=== PATIENT | female | born 1990 | race Caucasian/White ===

== ENCOUNTER 2019-10-06 16:50 | Outpatient (CLI) | payer OTHER ==
--- NOTE | 2019-10-07 12:56 | Ultrasound Report ---
PROCEDURE: OB First Trimester INDICATIONS: SUPERVISION OF NORMAL OUTSIDE/PRIOR DATING DATA: Last menstrual period (LMP): 08/14/2019. LMP-based estimated date of delivery (GARRET): 05/20/2020. First dating scan (date and location): 10/06/2019. Estimated date of delivery (GARRET) from first dating scan: 05/20/2020. TECHNIQUE: Real-time scanning was performed of the fetus and maternal pelvic organs, with image documentation. COMPARISON: None. FINDINGS: Embryo: Single living intrauterine gestation with an estimated sonographic gestational age of approx imately 7 weeks and 2 days based off crown-rump length of 1.2 cm. heart rate measured approxima tely 135 bpm. No perigestational hemorrhage. Measurement variability in dating: +/- 4 weeks by LMP, +/- 7 days by mean sac diameter (use before 6 weeks gestation if crown-rump length not able to be measured), +/- 5 days by crown-rump length (6-12 weeks gestation). Maternal organs: Ovaries are unremarkable bilaterally. Maternal cervix appears long and closed. Velázquez ited images through the kidneys demonstrate no hydronephrosis. IMPRESSION: Single living intrauterine gestation with an estimated sonographic gestational age of approximately 7 weeks and 2 days. Recommend follow-up routine second trimester anatomic screening survey. Reviewed by: Vasile Olvera MD on 10/07/2019 12:55 PM PDT Approved by: Vasile Olvera MD on 10/07/2019 12:55 PM PDT Station ID: [id number]
== END 2019-10-06 16:51 | disposition home or self-care (01) ==
LOC: DI 16:50
PROVIDERS: ATTEND Midwife
DX: Z34.01 Encounter for supervision of normal first pregnancy, first trimester (principal)
CPT/HCPCS: 76801

== ENCOUNTER 2020-05-24 14:29 | Outpatient (CLI) | payer OTHER ==
--- NOTE | 2020-05-25 08:34 | Ultrasound Report ---
PROCEDURE: OB Biophysical Profile INDICATIONS: FULL TERM MELISSA, BIOPHYSICAL PROFILE OUTSIDE/PRIOR DATING DATA: Last menstrual period (LMP): 08/14/2019. LMP-based estimated date of delivery (GARRET): 05/20/2020. First dating scan (date and location): 10/06/2019. Estimated date of delivery (GARRET) from first dating scan: 05/20/2020. TECHNIQUE: Real-time scanning was performed of the fetus, with image documentation and biometric luiza surements. Biophysical profile was also obtained. Endovaginal scanning: Not performed COMPARISON: OB ultrasound, 10/06/2019, 12/26/2019 and 03/12/2020. FINDINGS: General: A single living intrauterine gestation is present. Presentation: Cephalic Placenta: Placental position is right frontal, without previa. Prominent placental lakes. Amniotic fluid index: 10.3 cm, 29.4% for gestational age. Largest pocket 5 cm. heart rate: 137 beats per minute. Maternal cervical canal: Not visualized. biometrics: Performed on this exam. Estimated gestational age from initial scan: 40 weeks 4 days. Measurement variability in biometric dating: +/- 10 days from 12-20 weeks gestation, +/- 2 weeks from 20-30 weeks gestation, +/- 3 weeks at 30 weeks gestation or later. Biophysical profile: Tone: 2 points. Movement: 2 points. Respiration: 2 points. Largest pocket of fluid: 2 points. Umbilical artery Doppler: S/D ratio 2.05-2.39. Maternal ovaries are normal. Trace renal pelviectasis of the maternal left kidney. IMPRESSION: 1. A single living IUP redemonstrated. The estimated gestational age 40 weeks 4 days based on initial ultrasound. 2. Fetus in cephalic presentation. 3. Normal biophysical profile (8 out 8). Reviewed by: Corina Camarillo MD on 05/25/2020 8:33 AM PST Approved by: Corina Camarillo MD on 05/25/2020 8:33 AM PST Station ID: [id number]
== END 2020-05-24 14:30 | disposition home or self-care (01) ==
LOC: DI 14:29
PROVIDERS: ATTEND Midwife
DX: O36.8330 Maternal care for abnormalities of the fetal heart rate or rhythm, third trimester, not applicable or unspecified (principal); Z3A.40 40 weeks gestation of pregnancy

== ENCOUNTER 2020-05-25 15:04 | Outpatient (CLI) | payer OTHER | END 2020-05-25 15:05 | disposition short-term general hospital (02) | LOC: EMS 15:04 | DX: O73.1 Retained portions of placenta and membranes, without hemorrhage (principal); Z37.0 Single live birth; Z3A.40 40 weeks gestation of pregnancy | CPT/HCPCS: A0425; A0429 ==

== ENCOUNTER 2020-10-27 13:01 | Outpatient (CLI) | payer OTHER | END 2020-10-27 13:02 | disposition home or self-care (01) | LOC: LAB 13:01 | PROVIDERS: ATTEND Midwife | DX: Z01.89 Encounter for other specified special examinations (principal) | CPT/HCPCS: 36415; 84702 ==

== ENCOUNTER 2021-06-02 12:36 | Outpatient (CLI) | payer OTHER ==
[2021-06-02 13:06] VITALS: BP 119/69
--- NOTE | 2021-06-06 06:45 | PROCEDURE REPORT ---
- HPI Diagnosis/Indication for NST: Previous demise Current EDU 07/01/21 Gestation 35 Weeks and 6 Days 4 Para 2 Vital Signs Temperature 98.4 F 06/02/21 13:06 Heart Rate 77 06/02/21 13:06 Respiratory Rate 20 06/02/21 13:06 Blood Pressure 119/69 06/02/21 13:06 O2 Saturation 100 06/02/21 13:06 Temperature 98.4 F 06/02/21 13:07 Heart Rate 77 06/02/21 13:06 Respiratory Rate 20 06/02/21 13:06 Blood Pressure 119/69 06/02/21 13:06 O2 Saturation 100 06/02/21 13:06 - NST Procedure NST Procedure Start Date 06/02/21 Start Time 13:03 Stop Time 13:23 Vibroacoustic Stimulation Used No Patient States Movement Yes EFM 155 mod cecilia 15x15 accels no decels TOCO: rare - Results and Plan Findings/Impression: Patient is a 30 yo at 35+6 wga with complicated by prior demise now with suspected macrosomia and nuchal cord here for NST Cat I tracing Cont with twice weekly NST per [facility] Anticipate primary on 06/24/21 DOS: 06/02/21 NST read 06/02/21
== END 2021-06-02 13:40 | disposition home or self-care (01) ==
LOC: WFO 12:36 → FBP 12:38 → WFO 13:40
PROVIDERS: ATTEND Obstetrics & Gynecology
DX: O09.293 Supervision of pregnancy with other poor reproductive or obstetric history, third trimester (principal); Z3A.35 35 weeks gestation of pregnancy
CPT/HCPCS: 59025; 99213

== ENCOUNTER 2021-06-19 13:06 | Outpatient (CLI) | payer OTHER ==
[2021-06-19 13:38] VITALS: BP 120/70
[2021-06-19] MEDS ORDERED: FERRIC GLUCONATE 125 MG in SODIUM CHLORIDE 0.9% 100ML 100 ML IV ONE (14:00)
--- NOTE | 2021-06-20 14:37 | PROVIDER PROGRESS NOTE ---
Subjective - Prog Note Date Prog Note Date: 06/19/21 - Subjective Subjective: Patient presented for scheduled IV iron infusion. heart tones were obtained in the 150s. Patient was not seen or examined by me. Objective - Vital Signs/Intake & Output Intake & Output: Intake & Output 06/17/21 06/18/21 06/19/21 06/20/21 22:59 22:59 23:59 23:59 Intake Total Balance
== END 2021-06-19 15:45 | disposition home or self-care (01) ==
LOC: WFO 13:06 → FBP 13:10 → WFO 15:45
PROVIDERS: ATTEND Obstetrics & Gynecology
DX: O99.013 Anemia complicating pregnancy, third trimester (principal)
CPT/HCPCS: 96365; J2916

== ENCOUNTER 2021-06-22 15:28 | Outpatient (CLI) | payer OTHER ==
[2021-06-22 20:36] LABS: BASOPHILS % (AUTO) 0.3 %; EOSINOPHILS # (AUTO) 0.1 10^3/uL (0.0-0.7); EOSINOPHILS % (AUTO) 1.2 %; HCT - HEMATOCRIT 33.7 % (37.0-47.0); LYMPHOCYTES # (AUTO) 2.6 10^3/uL (1.5-3.5); LYMPHOCYTES % (AUTO) 27.2 %; MEAN CORPUSCULAR HEMOGLOBIN 31.1 pg (27.0-31.0); MEAN CORPUSCULAR HGB CONC 32.6 g/dL (32.0-36.0); MEAN CORPUSCULAR VOLUME 95.2 fL (81.0-99.0); MEAN PLATELET VOLUME 10.1 fL (7.9-10.8); MONOCYTES # (AUTO) 0.7 10^3/uL (0.0-1.0); MONOCYTES % (AUTO) 7.8 %; NEUTROPHILS # (AUTO) 5.8 10^3/uL (1.5-6.6); NEUTROPHILS % (AUTO) 61.8 %; PLT - PLATELET COUNT 243 10^3/uL (130-450); RED BLOOD COUNT 3.54 10^6/uL (4.20-5.40); RED CELL DISTRIBUTION WIDTH 14.2 % (12.0-15.0); WHITE BLOOD COUNT 9.4 x10^3/uL (4.8-10.8)
== END 2021-06-22 15:29 | disposition home or self-care (01) ==
LOC: LAB.S 15:28
PROVIDERS: ATTEND Obstetrics & Gynecology
DX: Z01.812 Encounter for preprocedural laboratory examination (principal); O09.299 Supervision of pregnancy with other poor reproductive or obstetric history, unspecified trimester; O36.60X0 Maternal care for excessive fetal growth, unspecified trimester, not applicable or unspecified; O26.899 Other specified pregnancy related conditions, unspecified trimester
CPT/HCPCS: 36415; 85025; 86850; 86900; 86901

== ENCOUNTER 2021-06-24 05:25 | Inpatient (IN) | payer OTHER ==
--- NOTE | 2021-06-24 02:47 | HISTORY & PHYSICAL EXAMINATION ---
Admit History - Mother's Labs Mother's Blood Type: positive: A Mother's RH: positive: Positive - Other Maternal History Other Maternal History: Patient is a 30-year-old -0-1-1 at 39+0 weeks EGA here for primary c- section for suspected LGA/nuchal cord with short interpregnancy interval and recent prior NND. DATING: LMP 09/18/20 gives GARRET 06/25/21 US on 11/16/20 at 7w4d gives GARRET 07/01/21; definitive. Patient has been followed by Lisa Jhaveri LPN at [facility]. History is as follows: G1: 2007 TAB at 8 weeks G2: 2013 at 40+3 weeks EGA. Female named Elissa. Miki Christensen G3: 05/25/2020 , home delivery. Male infant named Иван. demise 2/2 HIE. BW 8#8oz G4: current. Suspected LGA and nuchal cord. Desires elective . has been otherwise uncomplicated. Co-managed with [facility] given hx of NND. Had been recommended to have in facility with ability to convert to rapid with cEFM. With new knowledge of suspected macrosomia and nuchal cord, prefers to undergo primary . Prior delivery had labor course of 18H, 4H post rupture, 2nd stage 4 hours. Had nuchal cord, large right occipital cephalohematoma, and Apgars of 0/2/2. Asystolic at . Initial gases at 2 hours of life pH 6.7, base excess -33. PNL: A Pos, HCT 36.5 in 1st trimester, RPR NR. HepBsAg NR, Rubella imm, HbA1c 4.6%, TSH 1.29, UA wnl, GCCT neg/neg Vit D 33 HCT 04/14/21 32.2, having difficulty with iron supplementation Underwent us with [facility] at 33+4 wga, US showed EFW 3082, >99%ilw with enlarged abdominal circumference with probable nuchal cord. -Recommended twice weekly NST, which had been completed with CHUCK Parra. PMH unremarkable PSH: tonsilectomy OBHX: as above. Denies STIs and specifically denies HSV Had abnormal pap in 2020 with NORY-[address] Mccollum. Unclear if completed LEEP Irreg menses. Seasonal allergies NKDA MEDS: PNV and intermittent iron Allergies: No Known Allergies Medications: * prenat.vits,denilson,cno-okvc-yjjji tablet (prenat.vits,denilson,wdh-swcz-uddwy) Take 1 tablet by mouth once a day iron 325 mg (65 mg iron) tablet (ferrous sulfate) Take 1 tablet by mouth once a day Problems: Preoperative examination (ICD-V72.84) (WEE94-D49.818) Nuchal cord (ICD-762.5) (QCF21-X32.5) macrosomia (ICD-766.0) (INR66-M00.0) Supervision of with other obstetric history, unspecified trimester (ICD-V23.49) (MWP70-I91.299) Family History Summary: Family History Reviewed: 06/02/2021 Family History of Breast Cancer for Mother - Entered On: 05/23/2021 Family History of Hypertension for Mother - Entered On: 05/23/2021 Family History of Hypertension for Father - Entered On: 05/23/2021 Family History of Diabetes for Paternal Grandfather - Entered On: 05/23/2021 Social History Summary: Lives in [place] with and daughter 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 E: 5 per week outside of D: none Vital Signs: Patient Profile: 30 Years Old Female Height: 68 inches Weight: 190 pounds BMI: 28.99 Temp: 97.6 degrees F temporal BP sittin / 66 Cuff size: regular Vitals Entered By: Angeles William Talent Acquisition Administrator (June 02, 2021 10:55 AM) Meds Reviewed: Done Allergies Reviewed: Done Past Medical History: Reviewed and updated today: None Past Surgical History: Reviewed history from 05/23/2021 and no changes required: Tonsillectomy Flowsheet View for Follow-up Visit Estimated weeks of gestation: 35 6/7 Weight: 190 Blood pressure: 120 / 66 Fundal height: 36 FHR: 136 Vaginal bleeding: no Vaginal discharge: no activity: yes Labor symptoms: no Next visit: 1 wk Comment: PLease see HPI PLans to see [facility] until Plan for CS on 06/24/21 based on suspected macrosomia and muchal cord, recent hx of NND 2/2 HIE ON [employer]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 Physical Constitutional: GEN: NAD HEAD: NCAT EYES: No scleral icterus or conjunctival injection CV: RRR RESP: CTAB, normal effort ABD: S&NT/ND PSYCH: appropriate affect NEURO: alert and oriented, normal gait and coordination EXT: WWP EFM pending upon patient presentation Impression & Recommendations: Problem # 1: Supervision of with other obstetric history, unspecified trimester (ICD-V23.49) (NKN33-E51.299) LMP: 09/18/2020 GARRET of 06/25/2021 by LMP US on 11/17/20 at 7.4 wks NOT c/w LMP dating Final GARRET of 07/01/2021 -Will plan for primary CS at 39 weeks, on 06/24/21 -Anemia- ordered iron infusion in preparation for CS A POSITIVE /Rubella: IMMUNE VZV : unknown Genetic testing: Not addressed FAS: WNL. Placenta anterior. MELISSA WNL. EFW 78%ile, 3VC. US at 33+4 gives EFW 99%ile, with AC > 99%ile and nuchal cord present Glucola: 69 Flu: DECLINED Covid vaccine : Pfizer 03/29/2020, 04/19/20 booster 02/22/21 TDAP: not addressed, no found in records GBS: WIll have collected with [facility] HSV: Denies Breast pump rx: Has one MOD: C/S (due to traumatic delivery). Consents obtained. Plan for CS in 06/24/21. IV iron ordered in advance. PP contraception: TBD PAP: Will have repeat pap in period. Had abnormal pap last year. Orders: PRE OP -[id number] (CPT-[id number]) Problem # 2: Preoperative examination (ICD-V72.84) (WTR55-V90.818) Orders: PRE OP -[id number] (CPT-79408) Reviewed risks/benefits/alternatives to Risks include, but are not limited to, bleeding, infection, damage to neatby tissue and organs. On average, EBL of up to 1 liter is considered within normal limits for CS. Risks of blood transfusion include infection Risk of HIV 1/2million nationwide Risk of Hepatitis 1/1 million Risks of transfusion reaction Infection risk moderate given clean/contaminated nature of procedure and IV antibiotics will be given. Damage to nearby tissue and organs including bladder, bowel, ureters, blood vessels, nerves, and fetus Damage may be noted intra-op and may be delayed until after the procedure is complete Reviewed management of complications and efforts to avoid such outcomes but reviewed that they may occur despite our best efforts Written informed consent obtained. Will proceed to OR on 06/24/21 Meds/Allgy - Allergies Allergies/Adverse Reactions: Allergies Allergy/AdvReac Type Severity Reaction Status Date / Time No Known Drug Allergies Allergy Verified 06/19/21 13:41
--- OUTSIDE RECORDS SUMMARY | 2021-06-24 05:30 | EXTERNAL MEDICAL SUMMARY RPT | Continuity of Care Document ---
:1990 Author Organization [facility] Address [address] [place] [address] Phone Care Team Providers Name Role Phone RN Unavailable Unavailable Yenifer Unavailable Unavailable Direct Unavailable Unavailable Allergies No information. Encounters No information. Medications No information. Problems date description facility 20210613 IRON INFUSION FERRIC GLUCONATE All 20210613 Anemia complicating , third tr imester All 20210613 Anemia complicating , childbirt h, or the puerperium, All antepartum condition or complication 20210613 Anemia in mother complicating , childbirth AND/OR All puerperium 20210602 Umbilical cord around neck All 20210602 Preoperative examination, unspecified All 20210602 with other poor obstetric his tory All 20210602 [place] affected by other compression o f umbilical cord All 20210602 High risk All 20210602 Exceptionally large baby All 20210602 Exceptionally large baby All 20210602 Supervision of with other poor reproductive or All obstetric history, unspecified trimester 20210602 Other compression of umbilical cord aff ecting fetus or All 20210602 Exceptionally large at All 20210602 Encounter for other preprocedural exami nation All 20210602 Special examination - general All 20210523 No current problems or disability - unk nown All Results test status date ordered by attending specimen mamadou e blood_glucose_1_hour_a unknown 20210412 unknown unknown unknown fter_50_gm_oral_glucose blood_glucose_1_hour_a unknown 20210412 unknown unknown unknown fter_50_gm_oral_glucose blood_glucose_1_hour_a unknown 20210412 unknown unknown unknown fter_50_gm_oral_glucose blood_glucose_1_hour_a unknown 20210412 unknown unknown unknown fter_50_gm_oral_glucose blood_glucose_1_hour_a unknown 20210412 unknown unknown unknown fter_50_gm_oral_glucose blood_glucose_1_hour_a unknown 20210412 unknown unknown unknown fter_50_gm_oral_glucose facility observation status value reference units lab abnor mal line range code notes All blood_glucose unknown 69 unknown mg/dL _1504 unknow n unknown _1_hour_after_ -0 50_gm_oral_glu cose All blood_glucose unknown 69 unknown mg/dL _1039 unknow n unknown _1_hour_after_ 50_gm_oral_glu cose All blood_glucose unknown 69 unknown mg/dL _1504 unknow n unknown _1_hour_after_ -0 50_gm_oral_glu cose All blood_glucose unknown 69 unknown mg/dL _1039 unknow n unknown _1_hour_after_ 50_gm_oral_glu cose All blood_glucose unknown 69 unknown mg/dL _1504 unknow n unknown _1_hour_after_ -0 50_gm_oral_glu cose All blood_glucose unknown 69 unknown mg/dL _1039 unknow n unknown _1_hour_after_ 50_gm_oral_glu cose Vital Signs date measurement value source 20210602 weight_standard 190 lb 20210602 weight_metric 86.18 kg 20210602 temperature_standard 97.6 F 20210602 temperature_metric 36.44 C 20210602 height_standard 68 in 20210602 height_metric 172.72 cm 20210602 BP_systolic 120 mm[Hg] 20210602 BP_diastolic 66 mm[Hg] 20210602 BMI 28.99 kg/m2 20210602 weight_standard 190 lb 20210602 weight_metric 86.18 kg 20210602 temperature_standard 97.6 F 20210602 temperature_metric 36.44 C 20210602 height_standard 68 in 20210602 height_metric 172.72 cm 20210602 BP_systolic 120 mm[Hg] 20210602 BP_diastolic 66 mm[Hg] 20210602 BMI 28.99 kg/m2 20210602 weight_standard 190 lb 20210602 weight_metric 86.18 kg 20210602 temperature_standard 97.6 F 20210602 temperature_metric 36.44 C 20210602 height_standard 68 in 20210602 height_metric 172.72 cm 20210602 BP_systolic 120 mm[Hg] 20210602 BP_diastolic 66 mm[Hg] 20210602 BMI 28.99 kg/m2
[2021-06-24] MEDS ORDERED: LACTATED RINGERS 1,000 ML IV SCH ×4 (07:00→12:00)
[2021-06-24] MEDS ORDERED: LIDOCAINE MPF 2%-EPI 1:200000 20 ML VIAL ONE (07:27)
[2021-06-24] MEDS ORDERED: BUPIVACAINE 0.5% PF 10 ML VIAL ONE (07:27)
[2021-06-24] MEDS ORDERED: fentaNYL 100 MCG/2 ML VIAL ONE (07:38)
[2021-06-24] MEDS ORDERED: ACETAMINOPHEN 500 MG TABLET PO ONE (08:00)
[2021-06-24] MEDS ORDERED: METOCLOPRAMIDE 10 MG/2 ML VIAL IVP PRN ×2 (08:01→11:07)
[2021-06-24] MEDS ORDERED: ePHEDrine 50 MG/ML VIAL IVP PRN ×2 (08:01→11:07)
[2021-06-24] MEDS ORDERED: MORPHINE 2 MG/ML CARPUJECT IVP PRN ×2 (08:01→11:07)
[2021-06-24] MEDS ORDERED: HYDROmorphone 0.5 MG/0.5 ML SYRINGE IVP PRN ×2 (08:01→11:07)
[2021-06-24] MEDS ORDERED: ATROPINE ABBOJECT 1 MG/10 ML SYRINGE IVP PRN ×2 (08:01→11:07)
[2021-06-24] MEDS ORDERED: ONDANSETRON 4 MG/2 ML VIAL IVP PRN ×2 (08:01→11:07)
[2021-06-24] MEDS ORDERED: fentaNYL 100 MCG/2 ML VIAL IVP PRN ×2 (08:01→11:07)
[2021-06-24] MEDS ORDERED: NALOXONE 0.4 MG/ML VIAL IVP PRN ×2 (08:01→11:07)
--- NOTE | 2021-06-24 08:01 | ANESTHESIA ---
Pre-Anesthesia VS, & Labs - Diagnosis Prgnancy - Procedure section Vital Signs: Temp Pulse Resp BP Pulse Ox 98.1 C H 72 20 113/62 06/24/21 06:02 06/24/21 06:02 06/24/21 06:02 06/24/21 06:02 Height: 5 ft 8 in Weight (kg): 86.183 kg Body Mass Index: 28.8 BMI Classification: Overweight - NPO >8 hours - Is Patient ?: Yes - Lab Results Lab results reviewed: Yes Home Medications and Allergies Active Medications Acetaminophen (Acetaminophen 500 Mg Tablet) 1,000 mg PO ONCE ONE Stop: 06/24/21 08:01 Last Admin: 06/24/21 07:54 Dose: 1,000 mg Lactated Ringer's (Lr) 1,000 mls @ 125 mls/hr IV .Q8H DONTA Last Admin: 06/24/21 07:54 Dose: 125 mls/hr Cefazolin Sodium 2 gm/ Sodium (Chloride) 50 mls @ 100 mls/hr IV ONCE DONTA Stop: 06/24/21 10:00 Allergies/Adverse Reactions: Allergies Allergy/AdvReac Type Severity Reaction Status Date / Time No Known Drug Allergies Allergy Verified 06/19/21 13:41 Anes History & Medical History - Anesthetic History Anesthesia Complications: reports: No previous complications Family history of Anesthesia Complications: Denies Family history of Malignant Hyperthermia: Denies - Medical History Cardiovascular: reports: None Pulmonary: reports: None Gastrointestinal: reports: None Urinary: reports: None Neuro: reports: None Musculoskeletal: reports: None Endocrine/Autoimmune: reports: None Blood Disorders: reports: None Skin: reports: None Smoking Status: Former smoker Psychosocial: reports: Anxiety Exam General: Alert, Oriented x3, Cooperative, No acute distress Dental: WNL Mouth Openin Fingerbreadth Neck Mobility: Normal Mallampati classification: II Plan Anesthesia Type: Spinal, Transverse Abdominis Plane (TAP) Block Regional Block: Per Surgeon's request for Post Op pain control Consent for Procedure(s) Verified and Reviewed: Yes Code Status: Attempt Resuscitation ASA classification: 2-Mild systemic disease Is this case an emergency?: No
[2021-06-24] MEDS ORDERED: DEXAMETHASONE 4 MG/ML VIAL ONE (09:37)
[2021-06-24] MEDS ORDERED: LACTATED RINGERS 1,000 ML IV ONE (10:40)
[2021-06-24] MEDS ORDERED: SODIUM CHLORIDE FLUSH 0.9% 10 ML SYRINGE IVP PRN (11:21)
[2021-06-24] MEDS ORDERED: OXYTOCIN/SODIUM CHLORIDE 500 ML IV PRN (11:21)
[2021-06-24] MEDS ORDERED: ONDANSETRON ODT 4 MG TABLET TL PRN (11:21)
--- NOTE | 2021-06-24 11:37 | ANESTHESIA POST OP EVALUATION ---
Anesthesia Post Eval - Post Anesthesia Eval Vitals: Last Vital Signs Temp 37.4 C 06/24/21 10:55 Pulse 78 06/24/21 11:22 Resp 20 06/24/21 11:22 BP 117/55 L 06/24/21 11:22 Pulse Ox 100 06/24/21 11:22 CV Function Including HR & BP: Stable Pain Control: Satisfactory Nausea & Vomiting: Negative Mental Status: Baseline Respiratory Status: Airway Patent Hydration Status: Satisfactory Anesthesia Complications: None
[2021-06-24] MEDS: oxyCODONE 5 MG TABLET PO PRN ×3 (12:21→20:13)
[2021-06-24] MEDS ORDERED: oxyCODONE 5 MG TABLET PO SCH (13:00)
[2021-06-24] MEDS: KETOROLAC 30 MG/ML VIAL IVP SCH ×2 (16:07→21:58)
[2021-06-24] MEDS: ACETAMINOPHEN 500 MG TABLET PO SCH (16:07)
[2021-06-24] MEDS ORDERED: SODIUM CHLORIDE FLUSH 0.9% 10 ML SYRINGE IVP SCH (17:00)
--- NOTE | 2021-06-24 19:29 | OPERATIVE REPORT ---
Operative Report - General Admit Date: 06/24/21 Procedure Date: 06/24/21 Planned Procedure: Primary low transverse Pre-Op Diagnosis: IUP at 39+0 wga, suspected LGA, prior NND, nuchal cord Procedure Performed: Primary low transverse Post Op Diagnosis: Same and delivery of term gestation - Procedure Note Primary Surgeon: Karla Alcantar MD Secondary Surgeon: Elvia Haynes CNM Anesthesia Provider: Roxy Valdes CRNA Anesthesia Technique: Spinal Pathology: Patient to take placenta home IV Fluids (mL): 1,400 Estimated Blood Loss (mL): 1,000 Urine Output (mL): 400 Indications: Patient is a 30-year-old -0-1-1 at 39+0 weeks EGA here for primary c- section for suspected LGA/nuchal cord with short interpregnancy interval and r ecent prior NND. DATING: LMP 09/18/20 gives GARRET 06/25/21 US on 11/16/20 at 7w4d gives GARRET 07/01/21; definitive. Patient has been followed by Lisa Jhaveri LPN at [facility]. History is as follows: G1: 2007 TAB at 8 weeks G2: 2013 at 40+3 weeks EGA. Female named Elissa. [facility] G3: 05/25/2020 , home delivery. Male named Иван. demise 2/2 HIE. BW 8#8oz G4: current. Suspected LGA and nuchal cord. Desires elective . has been otherwise uncomplicated. Co-managed with [facility] given hx of NND. Had been recommended to have in facility with ability to convert to rapid with cEFM. With new knowledge of suspected macrosomia and nuchal cord, prefers to undergo primary . Prior delivery had labor course of 18H, 4H post rupture, 2nd stage 4 hours. Had nuchal cord, large right occipital cephalohematoma, and Apgars of 0/2/2. Asystolic at . Initial gases at 2 hours of life pH 6.7, base excess -33. PNL: A Pos, HCT 36.5 in 1st trimester, RPR NR. HepBsAg NR, Rubella imm, HbA1c 4.6%, TSH 1.29, UA wnl, GCCT neg/neg Vit D 33 HCT 04/14/21 32.2, having difficulty with iron supplementation Underwent us with MFM at 33+4 wga, US showed EFW 3082, >99%ilw with enlarged abdominal circumference with probable nuchal cord. Recommended toundergo given prior NND. Findings: Female infant in vertex presentation. Apgars 8/8. BW pending. Normal uterus, fallopian tubes, ovaries. Complications: None - Other Other Information/Narrative: Risks benefits and alternatives of the procedure were discussed. Written informed consent was obtained. Patient was taken to the operating room where spinal anesthesia was placed and found to be adequate. She was prepped and draped in the usual sterile fashion in the dorsal supine position with a leftward tilt. Frank catheter was in place. SCDs were in place and activated. Cefazolin 2 g IV was given as a preoperative antibiotic. Preoperative timeout was performed. A Pfannenstiel incision was made in the skin with a scalpel and carried through the underlying layer of fascia in a combination of sharp and blunt dissection. The fascia was incised in the midline, and the incision was extended laterally with the Zavala scissors. The superior aspect of the fascial incision was grasped with the Kenneth clamps, elevated, and the underlying rectus muscles were dissected off bluntly and sharply using the Zavala scissors. Attention was then turned to the inferior aspect of the incision which in a similar fashion was grasped, tented up with Kenneth clamps, and the underlying rectus muscles dissected off bluntly and sharply using Zavala scissors. The rectus muscles were then in the midline. The peritoneum was identified, tented up, and entered bluntly. The peritoneal incision was extended superiorly and inferiorly with good visualization of the bladder. The bladder that blade was then inserted. A bladder flap was not created. The lower uterine segment of the uterus was identified, and incised in a transverse fashion with a scalpel. The uterus was entered bluntly. The uterine incision was extended in a craniocaudal fashion by manual stretch. The bladder blade was removed. The was delivered from from vertex position. Baby wa s wrapped in a warm sterile towel. Delayed cord clamping was performed. After cessation of pulsations, the cord was clamped x2 and cut. The was handed off to the waiting pediatricians. The placenta was removed with manual expression. The uterus was NOT exteriorized. It was cleared of all clots clots and debris via manual swipe using Ray-Jose Roberto x2. The uterine incision was then repaired in a running locked fashion using 0 Vicryl suture. The incision was reinforced with a running imbricating layer again using 0-Vicryl suture. Excellent hemostasis was obtained. The gutters were cleared of all clots and debris. The pelvis was irrigated with saline infused sloppy wet lap sponges. The uterine defect was well visualized in normal anatomic position it was noted again to be hemostatic. The peritoneum was then reapproximated with 2-0 Vicryl in a running fashion. The rectus muscles were then reapproximated using interrupted [id number]-cj-rwcer sutures using 2-0 Chromic. Good hemostasis was noted. The fascia was then closed using 0 Vicryl in a running fashion starting from the left lateral edge to the midline. A second suture was used to close the fascia in a running fashion starting from the right lateral edge and meeting in the midline, agian using 0-Vicryl. The subcutaneous tissue was then irrigated and closed using 2-0 chromic in a running subcutaneous suture. Skin was closed in a running subcuticular suture using 4-0 Monocryl. Steri-Strips were applied to reinforce the incsion and dressing was applied. Procedure was well-tolerated and without complication. Sponge lap and needle counts were correct x2. Patient was taken to recovery room in stable condition. LINWOOD Michelle CNM, assisted with retraction, delivery of the infant, and suturing.
[2021-06-24] MEDS: SIMETHICONE CHEW 80 MG TABLET PO PRN (20:13)
[2021-06-24] MEDS: DOCUSATE SODIUM 100 MG CAPSULE PO SCH (20:13)
[2021-06-25] MEDS: ACETAMINOPHEN 500 MG TABLET PO SCH ×2 (00:12→08:13)
[2021-06-25] MEDS: oxyCODONE 5 MG TABLET PO PRN ×7 (00:12→21:54)
[2021-06-25] MEDS: KETOROLAC 30 MG/ML VIAL IVP SCH (04:01)
[2021-06-25 07:14] LABS: BASOPHILS % (AUTO) 0.2 %; EOSINOPHILS # (AUTO) 0.1 10^3/uL (0.0-0.7); EOSINOPHILS % (AUTO) 0.6 %; HCT - HEMATOCRIT 27.8 % (37.0-47.0); HGB - HEMOGLOBIN 9.2 g/dL (12.0-16.0); LYMPHOCYTES # (AUTO) 3.4 10^3/uL (1.5-3.5); LYMPHOCYTES % (AUTO) 27.2 %; MEAN CORPUSCULAR HEMOGLOBIN 31.6 pg (27.0-31.0); MEAN CORPUSCULAR HGB CONC 33.1 g/dL (32.0-36.0); MEAN CORPUSCULAR VOLUME 95.5 fL (81.0-99.0); MEAN PLATELET VOLUME 10.1 fL (7.9-10.8); MONOCYTES # (AUTO) 1.3 10^3/uL (0.0-1.0); MONOCYTES % (AUTO) 10.3 %; NEUTROPHILS # (AUTO) 7.5 10^3/uL (1.5-6.6); NEUTROPHILS % (AUTO) 60.9 %; PLT - PLATELET COUNT 197 10^3/uL (130-450); RED BLOOD COUNT 2.91 10^6/uL (4.20-5.40); RED CELL DISTRIBUTION WIDTH 14.4 % (12.0-15.0); WHITE BLOOD COUNT 12.3 x10^3/uL (4.8-10.8)
[2021-06-25] MEDS: DOCUSATE SODIUM 100 MG CAPSULE PO SCH ×2 (08:13→21:52)
[2021-06-25] MEDS: SIMETHICONE CHEW 80 MG TABLET PO PRN ×2 (08:13→12:09)
[2021-06-25] MEDS: IBUPROFEN 600 MG TABLET PO SCH ×3 (10:12→21:52)
[2021-06-25] MEDS ORDERED: IBUPROFEN 600 MG TABLET PO SCH (12:00)
--- NOTE | 2021-06-25 16:09 | Discharge Plan ---
Discharge Plan Problem Reviewed?: Yes Disposition: Home, Self Care Condition: Good Prescriptions: Acetaminophen [Acetaminophen Extra Strength] 1,000 mg PO Q8H PRN #60 tablet PRN Reason: Pain Docusate Sodium 100Mg Capsule [Colace 100Mg Capsule] 100 - 200 mg PO BID PRN #60 cap PRN Reason: Constipation Ibuprofen [Motrin] 600 mg PO Q6H PRN #60 tab PRN Reason: Pain oxyCODONE [Roxicodone] 2.5 - 5 mg PO Q4H PRN #24 tablet PRN Reason: Severe Pain Diet: Regular Activity Restrictions: Additional Comments Additional Instructions or Follow Up instructions: PELVIC REST: Nothing in the vagina for 6 weeks: No intercourse, tampons, douching. You are at high risk of uterine infection during this time frame. WARNING SIGNS: Call for: -Fever greater than 100.5 -Pain that does not improve with pain medication -Heavy bleeding in which you are soaking a pad an hour for 2 hours in a row -Incision becomes hot, hard, red, starts to open, or leaks foul smelling fluid -Pain or swelling in one leg and not the other +/- shortness of breath or chest pain LIFTING: No lifting more than 10# for 4 weeks DRIVING: No driving while on narcotics BATHING/WOUND CARE: Ok to shower. Let water run over the incision. Do not soap, scrub, or apply lotion. Pat dry with a clean towel or taiwo a music department chair. The surgical stickers will start to peel off and you can remove them when they do. Otherwise, the provider will remove them at your one week follow-up appointment. OK to use an unscented sanitary napkin or clean washcloth to keep the incision dry if the belly folds over the incision. DISCHARGE MEDICATIONS: Ibuprofen 600 mg by mouth every 6 hours as needed for pain Acetaminophen 500-1000 mg by mouth every 8 hours as needed for pain Docusate 100-200 mg by mouth twice a day as needed for constipation Oxycodone 2.5-5 mg by mouth every 4 hours as needed for pain No Smoking: If you smoke, Please STOP! Call for help. Follow-up with: Hilda Alcantar MD [Provider Admit Priv/Credential] -
--- NOTE | 2021-06-25 16:11 | PROVIDER PROGRESS NOTE ---
Subjective - Prog Note Date Prog Note Date: 06/25/21 Prog Note Time: 16:09 - Subjective Subjective: Patient is POD#1 s/p LTCS Doing well. Patient is up and ambulating, tolerating po, and voiding. Pain is well managed with pain medications. BF going well. O: VS: 98.4 72 102/59 16 10 GEN: NAD HEENT: NCAT CV:RR RESP: Nl effort ABD: S&NT/ND Dressing: CDI EXT: WWP A/P: POD#1 s/p LTCS -Doing well -Progressing on goals to discharge -Plan to DC home tomorrow Objective - Vital Signs/Intake & Output Vital Signs: Vital Signs x48h Temp Pulse Resp BP Pulse Ox 06/25/21 08:13 98.4 F 72 16 102/59 L 100 Intake & Output: Intake & Output 06/22/21 06/23/21 06/24/21 06/25/21 23:59 23:59 23:59 23:59 Intake Total 3450 700 Output Total 1675 3600 Balance 1775 -2900 - Lab Results Fish Bones: 06/25/21 07:00 Other Labs: Lab Results x24hrs 06/25/21 Range/Units 07:00 WBC 12.3 H (4.8-10.8) x10^3/uL RBC 2.91 L (4.20-5.40) 10^6/uL Hgb 9.2 L (12.0-16.0) g/dL Hct 27.8 L (37.0-47.0) % MCV 95.5 (81.0-99.0) fL MCH 31.6 H (27.0-31.0) pg MCHC 33.1 (32.0-36.0) g/dL RDW 14.4 (12.0-15.0) % Plt Count 197 (130-450) 10^3/uL MPV 10.1 (7.9-10.8) fL Neut # (Auto) 7.5 H (1.5-6.6) 10^3/uL Lymph # (Auto) 3.4 (1.5-3.5) 10^3/uL Coles # (Auto) 1.3 H (0.0-1.0) 10^3/uL Eos # (Auto) 0.1 (0.0-0.7) 10^3/uL Baso # (Auto) 0.0 (0.0-0.1) 10^3/uL Absolute Nucleated RBC 0.00 x10^3/uL Nucleated RBC % 0.0 /100WBC
[2021-06-26] MEDS: ACETAMINOPHEN 500 MG TABLET PO SCH ×2 (03:39→12:26)
[2021-06-26] MEDS: IBUPROFEN 600 MG TABLET PO SCH ×2 (03:40→10:07)
[2021-06-26] MEDS: oxyCODONE 5 MG TABLET PO PRN ×3 (03:40→12:26)
[2021-06-26] MEDS: DOCUSATE SODIUM 100 MG CAPSULE PO SCH (08:42)
[2021-06-26 10:33] VITALS: BP 105/56
--- NOTE | 2021-06-26 10:59 | DISCHARGE SUMMARY ---
"Discharge Summary Admit Date: 06/24/21 Discharge Date: 06/26/21 Discharging Provider: Katharine Code Status: Attempt Resuscitation Condition at Discharge: Good Discharge Disposition: 01 Home, Self Care - DIAGNOSES Admission Diagnoses: IUP at 39 wga Hx of prior NND Suspected macrosomia Suspected nuchal cord Discharge Diagnoses with Status of Each Condition: Same and delivery of term, LGA (4198g) - HPI History of Present Illness: Patient is a 30-year-old -0-1-1 at 39+0 weeks EGA here for primary c- section for suspected LGA/nuchal cord with short interpregnancy interval and recent prior NND. DATING: LMP 09/18/20 gives GARRET 06/25/21 US on 11/16/20 at 7w4d gives GARRET 07/01/21; definitive. Patient has been followed by Lisa Jhaveri LPN at [facility]. History is as follows: G1: 2007 TAB at 8 weeks G2: 2013 at 40+3 weeks EGA. Female named Elissa. [facility] G3: 05/25/2020 , home delivery. Male infant named Иван. demise 05/11 HIE. BW 8#8oz G4: current. Suspected LGA and nuchal cord. Desires elective . has been otherwise uncomplicated. Co-managed with [facility] given hx of NND. Had been recommended to have in facility with ability to convert to rapid with cEFM. Underwent us with [facility] at 33+4 wga, US showed EFW 3082, >99%ilw with enlarged abdominal circumference with probable nuchal cord. With new knowledge of suspected macrosomia and nuchal cord, prefers to undergo primary . Prior delivery had labor course of 18H, 4H post rupture, 2nd stage 4 hours. Had nuchal cord, large right occipital cephalohematoma, and Apgars of 0/2/2. Asystolic at . Initial gases at 2 hours of life pH 6.7, base excess -33. PNL: A Pos, HCT 36.5 in 1st trimester, RPR NR. HepBsAg NR, Rubella imm, HbA1c 4.6%, TSH 1.29, UA wnl, GCCT neg/neg Vit D 33 HCT 04/14/21 32.2, having difficulty with iron supplementation - CONSULTS | PROCEDURES Consultations: None - HOSPITAL COURSE Hospital Course: Patient was admitted and underwent to aforementioned procedure. was uncomplicated and well tolerated. Delviered a viable female infant from vertex presentation with BW 4198g and Apgars 8/8. Post course was uncomplicated. Discharged to home on post-op day#2 with routine discharge instructions. Rh positive/Rub imm - ALLERGIES Allergies/Adverse Reactions: Allergies Allergy/AdvReac Type Severity Reaction Status Date / Time No Known Drug Allergies Allergy Verified 06/19/21 13:41 - MEDICATIONS Home Medications: Ambulatory Orders Medication Instructions Recorded Confirmed Acetaminophen [Acetaminophen Extra 1,000 mg PO Q8H PRN #60 tablet 06/25/21 Strength] Docusate Sodium 100Mg Capsule 100 - 200 mg PO BID PRN #60 cap 06/25/21 [Colace 100Mg Capsule] Ibuprofen [Motrin] 600 mg PO Q6H PRN #60 tab 06/25/21 oxyCODONE [Roxicodone] 2.5 - 5 mg PO Q4H PRN #24 tablet 06/25/21 - PHYSICAL EXAM AT DISCHARGE General Appearance: positive: No acute distress Respiratory: positive: No respiratory distress Cardiovascular: positive: Other (RR) Peripheral Pulses: positive: 2+ Abdomen: positive: Non-tender, Other (FF at umbi.. Dressing removed. Steris in place, CDI) Back: positive: Nml inspection Skin: positive: Color nml Extremities: positive: Non-tender Neurologic/Psychiatric: positive: Oriented x3 - LABS Result Diagrams: 06/25/21 07:00 - FOLLOW UP Follow Up: [address] Alcantar - TIME SPENT Time Spent in Discharge (Minutes): 30"
== END 2021-06-26 13:00 | disposition home or self-care (01) | DRG 788 ==
LOC: FBP 05:25
PROVIDERS: ADMIT Obstetrics & Gynecology; ATTEND Obstetrics & Gynecology
PROC: 10D00Z1 Extraction of Products of Conception, Low, Open Approach (ICD-10-PCS; principal; 2021-06-24 07:30)
DX: O36.63X0 Maternal care for excessive fetal growth, third trimester, not applicable or unspecified (principal); O69.81X0 Labor and delivery complicated by cord around neck, without compression, not applicable or unspecified; Z3A.39 39 weeks gestation of pregnancy; Z37.0 Single live birth; Z87.891 Personal history of nicotine dependence
CPT/HCPCS: 36415; 85025; A9270; J7040; J7120; 86850; 86900; 86901

== ENCOUNTER 2022-01-17 08:42 | Day surgery (SDC) | payer OTHER ==
--- NOTE | 2022-01-17 08:39 | HISTORY & PHYSICAL EXAMINATION ---
HPI - History Obtained From History obtained from: Patient - History of Present Illness HPI Comment/Other: HPI: Presents is a 29-year-old -0-2-2 presenting today for LEEP. 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 Initially presented for colposcopy, but had a previous colpsocopy in 2020 that showed NORY 2 with negative ECC. She wanted treatment, but then became . She declined additional colposcopy as she wanted to proceed with previously delayed surgery. She is doing well overall and denies bleeding, pain, or other symptoms, but is nervous. . All other symptoms reviewed and were negative except per HPI. PMH NORY 2 PSH Tonsillectomy C section-2021 Manual extraction of placenta SH Previous smoker, approximately 1 drink per day. No illicit drugs Family History Mother: Breast cancer, hypertension Father: Hypertension Paternal Grandfather Allergies No known drug allergies Medications vitamins Ferrous Sulfate Physical exam: General: Alert, oriented, no acute distress Head: Normal cephalic atraumatic Eyes: PERRLA, extraocular motions intact. Respiratory: Normal rate of respiration. No accessory muscle use, normal respiratory effort. Cardiovascular: Regular rate and rhythm Abdomen: Nontender, nondistended Extremities: Normal range of motion Neuro: Oriented x3. Normal movements Psych: Appropriate mood and affect. Normal judgment and insight Plan 31-year-old -0-2-2 with NORY-2 here for LEEP NORY-2 -Plan for LEEP and ECC -Discussed risk, benefits, alternatives of treatment. Major risk of bleeding, needing further procedures. Discussed that this can be done in the office and is relatively safe procedure, patient agrees and would like to proceed. 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
[2022-01-17 09:15] LABS: HCT - HEMATOCRIT 40.6 % (37.0-47.0); HGB - HEMOGLOBIN 13.6 g/dL (12.0-16.0); MEAN CORPUSCULAR HEMOGLOBIN 31.7 pg (27.0-31.0); MEAN CORPUSCULAR HGB CONC 33.5 g/dL (32.0-36.0); MEAN CORPUSCULAR VOLUME 94.6 fL (81.0-99.0); MEAN PLATELET VOLUME 9.1 fL (7.9-10.8); RED BLOOD COUNT 4.29 10^6/uL (4.20-5.40); RED CELL DISTRIBUTION WIDTH 13.1 % (12.0-15.0); WHITE BLOOD COUNT 5.1 x10^3/uL (4.8-10.8)
[2022-01-17 09:16] LABS: HCG UR QUAL NEGATIVE
[2022-01-17] MEDS ORDERED: LACTATED RINGERS 1,000 ML IV ONE ×2 (09:17→11:45)
[2022-01-17] MEDS ORDERED: MIDAZOLAM 2 MG/2 ML VIAL ONE (09:31)
[2022-01-17] MEDS ORDERED: fentaNYL 100 MCG/2 ML VIAL ONE (09:31)
[2022-01-17] MEDS ORDERED: PROPOFOL 200 MG/20 ML VIAL IVP ONE (09:31)
--- NOTE | 2022-01-17 10:09 | ANESTHESIA ---
Pre-Anesthesia VS, & Labs - Diagnosis NORY 2 - Procedure LEEP Vital Signs: Temp Pulse Resp BP Pulse Ox O2 Flow Rate 36.1 C L 71 16 110/67 100 0 01/17/22 09:01 01/17/22 09:01 01/17/22 09:01 01/17/22 09:01 01/17/22 09:01 01/17/22 09:01 Height: 5 ft 8 in Weight (kg): 77.9 kg Body Mass Index: 26.1 BMI Classification: Overweight - NPO >8 hours - Is Patient ?: No - Lab Results Current Lab Results: Laboratory Tests 01/17/22 09:07: WBC 5.1, RBC 4.29, Hgb 13.6, Hct 40.6, MCV 94.6, MCH 31.7 H, MCHC 33.5, RDW 13.1, Plt Count 259, MPV 9.1 Lab results reviewed: Yes Fish Bones: 01/17/22 09:07 Home Medications and Allergies Home Medications: Ambulatory Orders No Known Home Medications 11/23/21 No Known Home Medications 11/23/21 Allergies/Adverse Reactions: Allergies Allergy/AdvReac Type Severity Reaction Status Date / Time No Known Drug Allergies Allergy Verified 01/17/22 09:17 Anes History & Medical History - Anesthetic History Anesthesia Complications: reports: No previous complications - Medical History Cardiovascular: reports: None Pulmonary: reports: None Gastrointestinal: reports: None Urinary: reports: None Neuro: reports: None Musculoskeletal: reports: None Endocrine/Autoimmune: reports: None Blood Disorders: reports: None Skin: reports: Psoriasis Smoking Status: Former smoker (quit 10 years ago) Psychosocial: reports: No issues indicated History of Cancer?: No - Surgical History Eyes Ears Nose Throat (EENT): reports: Tonsil/Adenoidectomy Gynecologic: reports: section Exam General: Alert, Oriented x3, Cooperative, No acute distress Dental: WNL Mouth Openin Fingerbreadth Neck Mobility: Normal Mallampati classification: II Thyromental Distance: 4-6 cm Mental/Cognitive Status: Alert/Oriented X3, Normal for patient Plan Anesthesia Type: General, Total IV Consent for Procedure(s) Verified and Reviewed: Yes Code Status: Attempt Resuscitation ASA classification: 1-Healthy patient Is this case an emergency?: No
[2022-01-17] MEDS ORDERED: POTASSIUM IODIDE/IODINE 14 ML SOLUTION ONE (10:11)
[2022-01-17] MEDS ORDERED: LIDOCAINE MPF 2%-EPI 1:200000 20 ML VIAL ONE (10:23)
[2022-01-17] MEDS ORDERED: LIDOCAINE 1% 50 ML MDV ONE (10:25)
[2022-01-17] MEDS ORDERED: PROPOFOL 500 MG/50 ML 500 MG/50 ML VIAL ONE (10:57)
[2022-01-17] MEDS ORDERED: LIDOCAINE MPF 2%-EPI 1:200000 20 ML VIAL SUBQ ONE (11:10)
[2022-01-17] MEDS ORDERED: FERRIC SUBSULFATE 8 ML SOLUTION (FOR OR) TOP ONE (11:30)
[2022-01-17] MEDS ORDERED: KETOROLAC 30 MG/ML VIAL ONE (11:48)
[2022-01-17] MEDS ORDERED: ONDANSETRON 4 MG/2 ML VIAL ONE (11:48)
[2022-01-17] MEDS ORDERED: HYDROmorphone 0.5 MG/0.5 ML SYRINGE ONE (12:01)
--- NOTE | 2022-01-17 12:14 | OPERATIVE REPORT ---
Operative Report - General Procedure Date: 01/17/22 Planned Procedure: LEEP Pre-Op Diagnosis: NORY 2 Procedure Performed: LEEP Post Op Diagnosis: CIN2 - Procedure Note Primary Surgeon: Rodger Toribio MD Anesthesia Provider: Awais Meyers CRNA Anesthesia Technique: Moderate sedation Pathology: Anterior cervical biopsy Posterior cervical biopsy IV Fluids (mL): 800 Estimated Blood Loss (mL): 20 Complications: None - Other Other Information/Narrative: Patient was taken to the operating room and placed in the dorsolithotomy position. Moderate sedation was achieved without difficulty. Perineum was prepped and draped in the normal sterile fashion. A coated speculum was placed in the vagina with good cervix. A single-tooth napkin was then used to grasp anterior lip of the cervix. A cervical block was then performed using local anesthesia. Small evacuator was placed in the speculum and suction turned on. At that point the loop electrode was then used to excise the posterior cervix starting at 3:00 and moving clockwise. The segment came into pieces and was sent to pathology. Attention was then turned to the anterior lip of the cervix which was similarly removed in a smooth motion from 3:00 to 9:00 removing the anterior cervix and 1 segment. The letter switched for the ball electrode which was used to cauterize the bleeding areas. Monsel solution was applied to the cervix. Hemostasis was noted. All instruments removed from the vagina and patient was taken to the PACU in stable condition.
[2022-01-17 12:27] VITALS: BP 107/62
--- NOTE | 2022-01-17 19:30 | ANESTHESIA POST OP EVALUATION ---
Anesthesia Post Eval - Post Anesthesia Eval Vitals: Last Vital Signs Temp 36.0 C L 01/17/22 12:25 Pulse 54 L 01/17/22 12:25 Resp 14 01/17/22 12:25 BP 107/62 01/17/22 12:25 Pulse Ox 99 01/17/22 12:25 O2 Flow Rate 0 01/17/22 09:01 CV Function Including HR & BP: Stable Pain Control: Satisfactory Nausea & Vomiting: Negative Mental Status: Baseline Respiratory Status: Airway Patent Hydration Status: Satisfactory Anesthesia Complications: None
== END 2022-01-17 08:43 | disposition home or self-care (01) ==
LOC: SDS 08:42
PROVIDERS: ATTEND Obstetrics & Gynecology
PROC: 0UBC7ZX Excision of Cervix, Via Natural or Artificial Opening, Diagnostic (ICD-10-PCS; principal; 2022-01-17 09:45)
DX: N87.1 Moderate cervical dysplasia (principal); R87.810 Cervical high risk human papillomavirus (HPV) DNA test positive; Z87.891 Personal history of nicotine dependence
CPT/HCPCS: 36415; 57460; 81025; 85027; A9270; J1170; J7120

== ENCOUNTER 2022-08-10 09:55 | Outpatient (CLI) | payer OTHER ==
[2022-08-10 10:11] LABS: BASOPHILS % (AUTO) 0.5 %; EOSINOPHILS # (AUTO) 0.1 10^3/uL (0.0-0.7); EOSINOPHILS % (AUTO) 2.5 %; HCT - HEMATOCRIT 38.3 % (37.0-47.0); HGB - HEMOGLOBIN 12.6 g/dL (12.0-16.0); LYMPHOCYTES # (AUTO) 2.1 10^3/uL (1.5-3.5); LYMPHOCYTES % (AUTO) 38.1 %; MEAN CORPUSCULAR HEMOGLOBIN 31.4 pg (27.0-31.0); MEAN CORPUSCULAR HGB CONC 32.9 g/dL (32.0-36.0); MEAN CORPUSCULAR VOLUME 95.5 fL (81.0-99.0); MEAN PLATELET VOLUME 9.6 fL (7.9-10.8); MONOCYTES # (AUTO) 0.4 10^3/uL (0.0-1.0); MONOCYTES % (AUTO) 7.7 %; NEUTROPHILS # (AUTO) 2.8 10^3/uL (1.5-6.6); PLT - PLATELET COUNT 218 10^3/uL (130-450); RED BLOOD COUNT 4.01 10^6/uL (4.20-5.40); RED CELL DISTRIBUTION WIDTH 12.7 % (12.0-15.0); WHITE BLOOD COUNT 5.6 x10^3/uL (4.8-10.8)
[2022-08-10 10:25] LABS: ALBUMIN 4.4 g/dL (3.2-5.5); ALBUMIN/GLOBULIN RATIO 1.5 (1.0-2.2); BILIRUBIN,TOTAL 0.9 mg/dL (0.2-1.0); CALCIUM 8.8 mg/dL (8.5-10.3); CREATININE 0.7 mg/dL (0.4-1.0); POTASSIUM 4.1 mmol/L (3.5-5.0); TOTAL PROTEIN 7.3 g/dL (6.7-8.2)
[2022-08-10 10:42] LABS: THYROID STIMULATING HORMONE 1.7 uIU/mL (0.34-5.60)
[2022-08-11 19:07] LABS: THYROGLOBULIN ANTIBODY <1.0 IU/mL (0.0-0.9); THYROID PEROXIDASE (TPO) AB 18 IU/mL (0-34)
[2022-08-12 17:08] LABS: ANTINUCLEAR ANTIBODIES IFA Negative (.)
[2022-08-13 12:08] LABS: TRYPTASE 6.8 ug/L (2.2-13.2)
[2022-08-14 12:09] LABS: C1 ESTERASE INHIBITOR SERUM 27 mg/dL (21-39)
== END 2022-08-10 09:56 | disposition home or self-care (01) ==
LOC: LAB 09:55
PROVIDERS: ATTEND Obstetrics & Gynecology
DX: T78.3XXD Angioneurotic edema, subsequent encounter (principal); N91.1 Secondary amenorrhea
CPT/HCPCS: 36415; 80053; 83520; 84146; 84443; 85025; 86038; 86160; 86161; 86376; 86800

== ENCOUNTER 2023-02-20 08:00 | Outpatient (CLI) | payer OTHER | END 2023-02-20 23:59 | disposition home or self-care (01) | LOC: LAB.S 08:00 | PROVIDERS: ATTEND Nurse Practitioner | DX: J02.9 Acute pharyngitis, unspecified (principal) | CPT/HCPCS: 87070 ==

== ENCOUNTER 2023-06-20 19:04 | Emergency (ER) | payer OTHER ==
[2023-06-20 19:32] VITALS: BP 103/68
--- NOTE | 2023-06-20 19:35 | ED Physician Documentation ---
PD HPI LOWER EXT INJURY - Stated complaint Stated Complaint: FALL/BILAT LEG PX - Chief complaint Chief Complaint: Trauma Ext - History obtained from History obtained from: Patient - Additional information Additional information: Otherwise healthy 32-year-old woman with unknown tetanus status was carrying her baby down some stairs and had a trip and fall. She injured multiple areas including left elbow, left knee, left tib-fib, and right leg. The worst of it is the left anterior pringle. No head or neck injury. 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: section HEENT: Tonsil/Adenoidectomy - Present Medications Home Medications: Ambulatory Orders Medication Instructions Recorded Confirmed No Known Home Medications 11/23/21 06/20/23 - Allergies Allergies/Adverse Reactions: Allergies Allergy/AdvReac Type Severity Reaction Status Date / Time No Known Drug Allergies Allergy Verified 06/20/23 19:28 - Social History Does the pt smoke?: No Smoking Status: Never smoker Does the pt drink ETOH?: Yes ETOH Use: Wine, Beer Does the pt have substance abuse?: No - Immunizations Immunizations are current?: Yes - POLST Patient has POLST: No PD ED PE NORMAL - Vitals Vital signs reviewed: Yes - General General: Alert and oriented X 3, No acute distress - HEENT HEENT: PERRL, EOMI - Derm Derm: Normal color, Warm and dry - Extremities Extremities: Other (There is an abrasion over the olecranon on the left with full range of motion no bony tenderness. Abrasion over the left knee and a scrape/erythematous area over the left anterior pringle which is tender. Right leg is nontender.) - Neuro Neuro: Alert and oriented X 3, Normal speech Eye Opening: Spontaneous Motor: Obeys Commands Verbal: Oriented GCS Score: 15 - Psych Psych: Normal mood, Normal affect Results - Vitals Vitals: Vital Signs - 24 hr 06/20/23 19:23 Temperature 36.3 C L Heart Rate 87 Respiratory 16 Rate Blood Pressure 103/68 O2 Saturation 96 Oxygen O2 Source Room air - Rads (name of study) L Tibfib XR- Neg Relevant Findings:: Final report received, EMP independent interpretation of test PD Medical Decision Making - ED course ED course: She presents with multiple seemingly minor injuries after a fall. The most painful is her left tib-fib area and relevant radiography is negative. She has abrasions on the left knee and left elbow without signs of bony injury clinically. Nurse dressed with bacitracin and she needed some crutches. Departure - Departure Disposition: 01 Home, Self Care Clinical Impression: Abrasion, left knee, initial encounter Contusion of left leg Qualifiers: Encounter type: initial encounter Qualified Code(s): S80.12XA - Contusion of left lower leg, initial encounter Abrasion of left elbow Qualifiers: Encounter type: initial encounter Qualified Code(s): S50.312A - Abrasion of left elbow, initial encounter Condition: Good Record reviewed to determine appropriate education?: Yes Instructions: ED Abrasion, ED Contusion Soft Tissue Comments: X-ray of the left leg looking okay. Seems like just bumps and bruises at this point. Tylenol and/or ibuprofen as needed for aches and pains. For the scrapes you can wash them with soap and water and then apply bacitracin antibiotic ointment and keeping covered with a Band-Aid. Return if worse. Forms: PCP List
--- NOTE | 2023-06-20 20:13 | XRAY Report ---
PROCEDURE: Tib/Fib LT INDICATIONS: leg inj TECHNIQUE: 2 views of the tibia and fibula were acquired. COMPARISON: None. FINDINGS: Bones: No fractures or dislocations. No suspicious bony lesions. Soft tissues: No suspicious soft tissue calcifications or masses. No radiopaque foreign body. IMPRESSION: No acute bony abnormality. Reviewed by: Wesley Case MD on 06/20/2023 8:12 PM PDT Approved by: Wesley Csae MD on 06/20/2023 8:12 PM PDT Station ID: [id number]
[2023-06-20] MEDS: BACITRACIN ZINC OINT 1 PACKET TOP STA (20:17)
[2023-06-20] MEDS: TETANUS/DIPHTHERIA/PERTUSSIS 0.5 ML SYRINGE IM ONE (20:17)
[2023-06-20 21:03] VITALS: O2SAT 98
== END 2023-06-20 20:40 | disposition home or self-care (01) ==
LOC: ED 19:04
DX: S80.212A Abrasion, left knee, initial encounter (principal); S80.12XA Contusion of left lower leg, initial encounter; W10.9XXA Fall (on) (from) unspecified stairs and steps, initial encounter; Z23 Encounter for immunization
CPT/HCPCS: 73590; 90471; 90715; 99283; A9270

== ENCOUNTER 2023-06-23 08:00 | Outpatient (CLI) | payer OTHER ==
--- NOTE | 2023-06-24 08:22 | XRAY Report ---
PROCEDURE: Elbow 3+V LT INDICATIONS: LEFT ELBOW PAIN TECHNIQUE: 3 views of the elbow were acquired. COMPARISON: None. FINDINGS: Bones: No fractures or dislocations. No suspicious bony lesions. Soft tissues: No effusion. No suspicious soft tissue calcifications or masses. IMPRESSION: No acute bony abnormality. Reviewed by: Morro Rojo MD on 06/24/2023 8:21 AM PDT Approved by: Morro Rojo MD on 06/24/2023 8:21 AM PDT Station ID: [id number]
== END 2023-06-23 23:59 | disposition home or self-care (01) ==
LOC: DI.S 08:00
PROVIDERS: ATTEND Physician Assistant Medical
DX: M25.522 Pain in left elbow (principal)

== ENCOUNTER 2023-09-11 12:20 | Emergency (ER) | payer OTHER ==
--- NOTE | 2023-09-11 14:23 | XRAY Report ---
PROCEDURE: Elbow 3+V LT INDICATIONS: Trauma TECHNIQUE: 3 views of the elbow were acquired. COMPARISON: 06/23/2023 FINDINGS: Bones: No acute displaced fracture or dislocation. Soft tissues: No significant joint effusion. IMPRESSION: No acute radiographic abnormality. If there is high concern for occult injury, consider repeat radiog aly or cross-sectional imaging. Reviewed by: Dex Burger MD on 09/11/2023 2:21 PM PDT Approved by: Dex Burger MD on 09/11/2023 2:21 PM PDT Station ID: [id number]
--- NOTE | 2023-09-11 15:00 | ED Physician Documentation ---
PD HPI UPPER EXT INJURY - Stated complaint Stated Complaint: L ELBOW PX - Chief complaint Chief Complaint: Trauma Ext - Additonal information Additional information: 32-year-old female fell down the stairs about 2 months ago injuring her left elbow. She says that since then she has been noticing hypersensitivity what feels like nerve pain to her elbow she feels like she is having a hard time lifting up her child and sometimes even it hurts to drive due to sharp shooting pain in her elbow. 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 HEENT: Tonsil/Adenoidectomy - Present Medications Home Medications: Ambulatory Orders Medication Instructions Recorded Confirmed No Known Home Medications 11/23/21 06/20/23 - Allergies Allergies/Adverse Reactions: Allergies Allergy/AdvReac Type Severity Reaction Status Date / Time No Known Drug Allergies Allergy Verified 09/11/23 12:40 - Social History Does the pt smoke?: No Smoking Status: Never smoker Does the pt drink ETOH?: Yes Does the pt have substance abuse?: No - Immunizations Immunizations are current?: Yes - POLST Patient has POLST: No PD ED PE NORMAL - Vitals Vital signs reviewed: Yes - General General: Alert and oriented X 3, No acute distress, Well developed/nourished - Derm Derm: Normal color, Warm and dry, No rash - Extremities Extremities: Other (Left elbow: No swelling inflammation no crepitus no popping with bending or extension. Strong radial pulses. Full range of motion) Results - Vitals Vitals: Vital Signs - 24 hr 09/11/23 09/11/23 12:36 15:26 Temperature 36.5 C Heart Rate 73 65 Respiratory 18 18 Rate Blood Pressure 122/65 116/74 O2 Saturation 99 100 Oxygen O2 Source Room air - Rads (name of study) Left elbow x-ray Relevant Findings:: Final report received, EMP independent interpretation of test, Other (No acute radiographic abnormalities findings) PD Medical Decision Making - ED course ED course: 32-year-old female presents emergency department for 2 months of pain in her left elbow. X-rays were complete for further evaluation and there was no acute radiographic abnormalities or findings. Patient became quite tearful of this information and said that because of the pain she wanted to know if there is something wrong. She was offered a Toradol shot as well as a lidocaine patch here in the emergency department which she eagerly agreed to. Patient has a follow-up appoint with her primary care provider tomorrow and was told to have images faxed over to her primary care provider for further evaluation and possible physical therapy referral or Ortho referral. Given that this happened about 2 months ago I do not believe that a sling is warranted and no believe any further workup is also warranted patient told to follow-up with primary care provider for further evaluation ER return precautions given patient is safe for discharge. Departure - Departure Disposition: Home, Self Care Clinical Impression: Left elbow pain Instructions: ED Contusion Elbow Comments: Thank you for trusting us with you care. We have completed X-rays and are not seeing any abnormalities in the ER. We have given a Toradol shot to help with your pain as well as a lidocaine patch. Please follow up with your PCP tomorrow for further evaluation. EXAM: [id number] XR/ELBL ([id number]) PROCEDURE: Elbow 3+V LT INDICATIONS: Trauma TECHNIQUE: 3 views of the elbow were acquired. COMPARISON: 06/23/2023 FINDINGS: Bones: No acute displaced fracture or dislocation. Soft tissues: No significant joint effusion. IMPRESSION: No acute radiographic abnormality. If there is high concern for occult injury, consider repeat radiography or cross-sectional imaging. Reviewed by: Dex Burger MD on 09/11/2023 2:21 PM PDT Approved by: Dex Burger MD on 09/11/2023 2:21 PM PDT Station ID: [id number] Report Electronically Signed by Dex Burger MD 09/11/23 1420 09/11/23 1421 cc: Anay Gordon DNP Forms: PCP List Discharge Date/Time: 09/11/23 15:26
[2023-09-11] MEDS: KETOROLAC 30 MG/ML VIAL IM STA (15:11)
[2023-09-11] MEDS: LIDOCAINE PATCH 5% TOP STA (15:11)
[2023-09-11 15:35] VITALS: BP 116/74; O2SAT 100
== END 2023-09-11 15:26 | disposition home or self-care (01) ==
LOC: ED 12:20
DX: M25.522 Pain in left elbow (principal)
CPT/HCPCS: 73080; 96372; 99283; 99284; A9270